=== PATIENT | male | born 2000 | race Caucasian/White ===

== ENCOUNTER 2023-03-13 05:09 | Emergency (ER) | payer BC, SELFPAY ==
[2023-03-13 05:24] VITALS: BP 129/92; PULSE 115; RESP 20; TEMP 37.6; O2SAT 94; BMI 25.1
--- NOTE | 2023-03-13 05:33 | ED.GENADULT ---
HPI - General Adult General Chief complaint: Nausea/Vomiting Stated complaint: nausea vomiting Time Seen by Provider: 03/13/23 05:33 History of Present Illness HPI narrative: Patient c/o abdominal cramping that began Monday around 1400 and then woke from sleep at 0115 with multiple episodes of vomiting. Patient believes he had chills and his friend states he was hot to the touch. Patient had some diarrhea prior to arrival. Patient tried TUMS without relief. Patient states he was at his friend's house in [place] 4 days ago where there were two family members ill with nausea/ vomiting. 22-year-old man presenting to the emergency department little over 4 hours after onset of a number of episodes of vomiting. No hematuria. May have felt chilled. No rash. Reportedly was hot to touch. Has had some loose diarrheal stool as well. Tried Tums. There was some exposure about 4 days ago but he is also wondering whether not may have been related to eating [employer] or some cool [employer]. This is all preceded by little abdominal cramping. There is no hematochezia either. Mild abdominal discomfort. Related Data Home Medications Medication Instructions Recorded Confirmed No Known Home Medications 03/13/23 03/13/23 Allergies Allergy/AdvReac Type Severity Reaction Status Date / Time No Known Drug Allergies Allergy Verified 03/13/23 05:29 Review of Systems Status of ROS: Reports: 6 or more systems reviewed and unremarkable except as noted in History and below [facility] Medical History Concussion ?S06.0XAA - Concussion with loss of consciousness status unknown, initial encounter (ICD-10) Social History service: No Exam Narrative: Exam Narrative: Has removed his shirt is just in briefs and sweat pants. Pleasant. Seems a little tired. Skin is warm and dry. Oropharynx is moist without notable erythema. Neck is supple without lymphadenopathy. Lungs are clear. Heart is in an elevated rate and regular rhythm. Cranial nerves 2-12 intact. Well-perfused peripherally. Skin is normally warm without rash. Moving all extremities without difficulty. Abdomen with normoactive bowel sounds he says feels a little bloated. Generally mildly tender without peritoneal signs Const: Vital Signs, click to edit/add: Vital Signs - 24 hr 03/13/23 05:24 Temperature 99.7 F H Pulse Rate [Left P ulse Oximeter] 115 H Respiratory Rate 20 Blood Pressure [Ri ght Upper Arm] 129/92 H Pulse Oximetry 94 Oxygen Delivery Me thod Room Air Documenting provider has reviewed patient's vital signs: yes Course Vital Signs Vital signs: Initial Vital Signs Temperature 99.7 F H 03/13/23 05:24 Temperature Source Temporal Artery Scan 03/13/23 05:24 Pulse Rate 115 H 03/13/23 05:24 Respiratory Rate 20 03/13/23 05:24 Blood Pressure 129/92 H 03/13/23 05:24 Blood Pressure Mean 104 03/13/23 05:24 Blood Pressure Position Sitting 03/13/23 05:24 Pulse Oximetry 94 03/13/23 05:24 Oxygen Delivery Method Room Air 03/13/23 05:24 Vital Signs Temperature 99.7 F H 03/13/23 05:24 Pulse Rate 115 H 03/13/23 05:24 Respiratory Rate 20 03/13/23 05:24 Blood Pressure 129/92 H 03/13/23 05:24 Pulse Oximetry 94 03/13/23 05:24 Oxygen Delivery Method Room Air 03/13/23 05:24 Temperature 99.7 F H 03/13/23 05:24 Pulse Rate 115 H 03/13/23 05:24 Respiratory Rate 20 03/13/23 05:24 Blood Pressure 129/92 H 03/13/23 05:24 Pulse Oximetry 94 03/13/23 05:24 Oxygen Delivery Method Room Air 03/13/23 05:24 Medications Administered Medications: Generic Name Dose Route Start Last Admin Trade Name Freq PRN Reason Stop Dose Admin Ondansetron HCl 4 mg 03/13/23 05:55 03/13/23 05:59 Ondansetron Odt 4 Mg Tab PO 03/13/23 05:56 4 mg ONCE ONE Administration Medical Decision Making MDM Narrative Medical decision making narrative: Generally well. Abdominal exam is reassuring. Given community prevalence I think most likely this is a gastroenteritis picture likely infectious. Does not appear to be terribly dehydrated at this point. A propose trial of ODT Zofran. Is given ODT Zofran. On reassessment does note that he does feel a good deal better. Is able to tolerate and maintain diluted juice. See patient discharge plan Lab Data Labs: Lab Results 03/13/23 Range/Units 05:35 SARS-CoV-2 (PCR) Negative SARS-CoV-2 (Negative) Influenza Type A (PCR) Negative PCR FLU A (Negative) Influenza Type B (PCR) Negative PCR FLU B (Negative) RSV (PCR) Negative PCR RSV (Negative) Discharge Plan Discharge Clinical Impression: Gastroenteritis Patient Disposition: Home w/ Parent or Adult Condition: Improved Additional Instructions: Focus on hydration. Slow advance of diet over the next 24-36 hours. Diluted juices, soup broths. Crackers, rice, toast. Be seen for intractable vomiting, marked increase in persistent abdominal pain. Zofran from [facility]. Prescriptions: No Action No Known Home Medications Stand Alone Forms: [facility] Info Instructions
[2023-03-13] MEDS: ONDANSETRON ODT 4 MG TAB PO (05:59)
[2023-03-13 06:24] LABS: PCR FLU A Negative PCR FLU A (Negative); PCR FLU B Negative PCR FLU B (Negative); PCR RSV Negative PCR RSV (Negative)
[2023-03-13 06:26] LABS: SARS PCR* Negative SARS-CoV-2 (Negative)
== END 2023-03-13 06:46 | disposition home or self-care (01) ==
LOC: ED 06:46
PROVIDERS: Emergency Provider Family Medicine
DX: K52.9 Noninfective gastroenteritis and colitis, unspecified (principal)
CPT/HCPCS: 87631; 99283; 99284; A9270

== ENCOUNTER 2024-07-21 15:07 | Emergency (ER) | payer BC, SELFPAY ==
--- OUTSIDE RECORDS SUMMARY | 2024-07-21 15:09 | XMS_ITS | Patient Health Record ---
Author Organization [facility] Address [address] [place] [address] Support Name Relationship Address Phone AVNI KEYES Guarantor Unknown Reason For Referral No Information Plan Of Treatment No Information
--- OUTSIDE RECORDS SUMMARY | 2024-07-21 15:09 | XMS_ITS | Clinical Summary ---
Author Organization [facility] Address [address] [place] [id number] Care Team Providers Care Meat Specialist Name Role Phone Pcp, No Primary Care Provider Unavailabl e Allergies No known active allergies Medications albuterol HFA (PRO-AIR; VENTOLIN; PROVENTIL) 90 mcg/actuation inhaler INHALE 2 PUFFS EVERY 4 HOURS BY INHALATION ROUTE. 2 Active cetirizine (ZYRTEC) 10 mg tabletIndicatio ns:Seasonal allergies Take 1 Tablet (10 mg) by mouth once daily. 90 Tablet 1 3 Active fluticasone (50 mcg per actuation) nasal solution (FLONASE)Indica tions:Seasonal allergies Inhale 2 Sprays to both nostrils once daily. 16 g 4 3 Active ibuprofen (ADVIL; MOTRIN) 400 mg tabletIndicatio ns:Varicocele Take 1 Tablet (400 mg) by mouth four times daily with meals and at bedtime. 30 Tablet 4 Active Active Problems No known active problems Social History Tobacco Use Types Packs/Day Years Used Date Smoking Tobacco: Never Smokeless Tobacco: Never Tobacco Cessation:Counseling Given: Not Answered Alcohol Use Standard Drinks/Week Comments Never 0 (1 standard drink = 0.6 oz pur e alcohol) PHQ-2 Answer Date Recorded PHQ-2 TOTAL SCORE 0 02/07/2022 Social Connections Answer Date Recorded Frequency of Communication with Friends and Fami ly Not on file 05/12/2023 Financial Resource Strain Answer Date R ecorded Difficulty of Paying Living Expenses 3 05/10/2022 Difficulty of Paying Living Expenses Not on file 05/10/2022 Food Insecurity Answer Date Recorded Worried About Running Out of Food in the Last Ye ar 1 05/10/2022 Transportation Needs Answer Date Record ed Lack of Transportation (Medical) 1 05/10/2022 Housing Stability Answer Date Recorded Unable to Pay for Housing in the Last Year 1 05/10/2022 Interpersonal Safety Answer Date Record ed Are you being hit, kicked, p ushed or yelled at (see row info)? No 09/05/2023 Interpersonal Safety Abuse 12 - 18 Not on file 09/05/2023 Interpersonal Safety Ambulatory Vulnerability No t on file 09/05/2023 Sex and Gender Information Value Date Recorded Sex Assigned at Not on file Legal Sex Male 3:45 PM CDT Gender Identity Not on file Sexual Orientation Not on file Obstetrics History Last Filed Vital Signs Vital Sign Reading Time Taken Comments Blood Pressure 135/90 09/05/2023 11:45 PM CDT Pulse 76 09/05/2023 11:45 PM CDT Temperature 37 C (98.6 F) 09/05/2023 11:45 PM CDT Respiratory Rate 18 09/05/2023 11:45 PM CDT Oxygen Saturation 96% 09/05/2023 11:45 PM CDT Inhaled Oxygen Concentration - - Weight 74.8 kg (165 lb) 09/05/2023 10:51 PM CDT Height 172.7 cm (5' 8) 09/05/2023 10:51 PM CDT Body Mass Index 25.09 09/05/2023 10:51 PM CDT Plan of Treatment Upcoming Encounters Date Type Department Care Team (Late st Contact Info) Description 08/09/2024 8:30 AM CDT Office Visit [facility] [address] [facility] [place] [phone] Estefanía Lopez PA [address] [facility] [phone] Health Maintenance Due Date Last Done Comments Tdap 2013 HIV for age 15-65 2017 HPV series for age 9-26 (1 - Male 3-dose series) 2017 Hepatitis C screening for ag e 18-79 2020 Tetanus booster 2022 BMI (ht and wt on same day) for age 18+ 02/07/2023 02/07/2022 Depression screening for age 12+ 02/07/2023 02/08/20 COVID-19 vaccine series (2023- season) 2023 Influenza Vaccine (Season Ended) 2024 Pneumococcal series for age 6-49 Aged Out No longer eligible based on patient's age to complete this topic Insurance [id number]-[place]-[facility] Care Teams Meat Specialist Relationship Specialty Start Date End Date Pcp, No . PCP - General 11/13/20
--- OUTSIDE RECORDS SUMMARY | 2024-07-21 15:09 | XMS_ITS | Clinical Summary ---
Author Organization [facility] Address [address] [place] [address] Care Team Providers Care Mds Coordinator Name Role Phone Genesis Maldonado APRN Primary Care Provider Unava ilable Social History Tobacco Use Types Packs/Day Years Used Date Smoking Tobacco: Never Assessed Sex and Gender Information Value Date Recorded Sex Assigned at Not on file Gender Identity Not on file Sexual Orientation Not on file Plan of Treatment Health Maintenance Due Date Last Done Comments Hepatitis C Screening 2002 MMR Vaccines (1 of 1 - Stand ai series) 05/28/2003 Annual Physical 11/27/2004 Varicella Vaccines (1 of 2 - 13+ 2-dose series) 05/28/2015 HPV Vaccines (1 - Male 3-dos e series) 2017 Meningococcal B Vaccine (1 o f 2 - Standard) 2018 DTaP/Tdap/Td Vaccines (1 - Tdap) 2021 Hepatitis B Vaccines (1 of 3 - 19+ 3-dose series) 2021 Influenza Vaccine (Season Ended) 2024 Zoster Vaccines (1 of 2) 2052 Respiratory Syncytial Virus (RSV) 60 years and older and/or patients (1 - 1-dose 75+ series) 2077 Hepatitis A Vaccines Aged Out No long er eligible based on patient's age to complete this topic Meningococcal Vaccine Aged Out No coty ravi eligible based on patient's age to complete this topic Pneumococcal: Pediatrics (0 to 5 Yrs) and At-Risk Patients (6 to 49 Years) Aged Out No longer eligible b ased on patient's age to complete this topic Respiratory Syncytial Virus (RSV) <20 months Aged Out No longer eligible b ased on patient's age to complete this topic Care Teams Mds Coordinator Relationship Specialty Start Date End Date Genesis Maldonado GOLF TEACHER PCP - General 06/02/21
[2024-07-21 15:22] VITALS: BP 124/90; PULSE 83; RESP 16; TEMP 37.3; O2SAT 82; BMI 26.8
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
[2024-07-21 17:25] LABS: Appearance Urine Clear (Clear); Bilirubin Urine Negative (Negative); Blood Urine Negative (Negative); Color Urine Yellow (Yellow); Glucose Urine Negative (Negative); Ketones Urine Negative (Negative); Leukocyte Esterase Urine Negative (Negative); Nitrite Urine Negative (Negative); Protein Urine Negative (Negative); Specific Gravity Urine 1.015 (1.000-1.030); Urobilinogen Urine 0.2 (0.2-1.0); pH Urine 7.5 (5.0-8.5)
[2024-07-21 17:32] LABS: RBC Urine 0-2 (0-2); Squamous Epithelial Cell Urine Few (None-Few); WBC Urine 0-2 (0-5)
--- OUTSIDE RECORDS SUMMARY | 2024-07-21 17:55 | XMS_ITS | Clinical Summary ---
Author Organization [facility] Address [address] [place] [address] Care Team Providers Care Renewable Energy Division Manager Name Role Phone Genesis Maldonado APRN Primary [...] age to complete this topic Care Teams Renewable Energy Division Manager Relationship Specialty Start Date End Date Genesis Maldonado MANAGER SEARCH ENGINE PCP - General 06/02/21
--- OUTSIDE RECORDS SUMMARY | 2024-07-21 17:55 | XMS_ITS | Clinical Summary ---
Author Organization [facility] Address [address] [place] [address] Care Team Providers Care Oil Well Driller Name Role Phone Pcp, No Primary Care [...] Description 08/09/2024 8:30 AM CDT Office Visit [facility] [address] [facility] [place] [phone] Estefanía Lopez PA [address] [facility]IG[facility] [id number] Health Maintenance Due Date Last Done Comments [...] patient's age to complete this topic Insurance [id number]-[facility] [place] [address] Care Teams Oil Well Driller Relationship Specialty Start Date End Date Pcp, No . PCP - General 11/13/20
[2024-07-21 18:53] VITALS: BP 120/80; PULSE 97; RESP 16
[2024-07-21 19:10] LABS: Chlamydia DNA Amplified* NOT DETECTED (No Detected); GC DNA Amplified* NOT DETECTED (No Detected)
== END 2024-07-21 18:54 | disposition home or self-care (01) ==
PROVIDERS: Emergency Provider Family Medicine
DX: N50.812 Left testicular pain (principal); N50.811 Right testicular pain
CPT/HCPCS: 76870; 81001; 87491; 87591; 93976; 99284